=== PATIENT | male | born 1995 | race Hispanic/Latino ===

== ENCOUNTER 2023-06-22 08:22 | Emergency (ER) | payer SELFPAY ==
[2023-06-22] MEDS ORDERED: Acetaminophen 500 MG TAB ONE (09:03)
[2023-06-22] MEDS ORDERED: Ondansetron ODT 4 MG TAB ONE (09:03)
== END 2023-06-22 09:41 ==
LOC: ERS 08:22
DX: S09.90XA Unspecified injury of head, initial encounter (principal); W22.8XXA Striking against or struck by other objects, initial encounter
CPT/HCPCS: 99283; Q0162